=== PATIENT | male | born 2000 | race Caucasian/White ===

== ENCOUNTER 2025-06-29 00:42 | Emergency (ER) | payer BC, OTHER ==
[~2025-06-29] VITALS: Ht 177.8 cm; Wt 95.3 kg
[2025-06-29 00:50] VITALS: BP 116/64
[2025-06-29] MEDS ORDERED: DIVA500T4 PO (00:56)
[2025-06-29 01:19] LABS: PLATELET COUNT (AUTO) 260 K/uL (152-348); RED BLOOD CELL COUNT(AUTO) 5.27 MIL/uL (4.06-5.63); RED CELL DISTRIBUTION WIDTH 13.2 % (12.1-16.2); WHITE BLOOD COUNT (AUTO) 7.2 K/uL (3.6-10.2)
[2025-06-29 01:28] LABS: CREATININE 1.0 mg/dL (0.6-1.3); SODIUM SERUM 139.0 mmol/L (136-145); UREA NITROGEN, BLOOD 19.0 mg/dL (7-18)
[2025-06-29 01:34] LABS: ASPARTATE AMINOTRANSFERASE 21.0 U/L (15-37); TOTAL PROTEIN, SERUM 7.9 g/dL (6.4-8.2)
[2025-06-29 01:38] LABS: LACTIC ACID 6.2 mmol/L (0.4-2.0)
[2025-06-29 01:41] LABS: ETHANOL < 3 MG/DL (0-10); NT-PRO BNP 5 pg/mL (0-125)
[2025-06-29 01:44] LABS: *AMPHETAMINE, URINE NEGATIVE (NEGATIVE); *BARBITURATE, URINE NEGATIVE (NEGATIVE); *BENZODIAZEPINE, URINE NEGATIVE (NEGATIVE); *CANNABINOID, URINE POSITIVE (NEGATIVE); *COCCAINE, URINE NEGATIVE (NEGATIVE); *OPIATE, URINE NEGATIVE (NEGATIVE); *PHENCYCLIDINE SCREEN,URINE NEGATIVE (NEGATIVE); FENTANYL, URINE NEGATIVE (NEGATIVE)
[2025-06-29 02:13] VITALS: BP 111/68; O2SAT 94
== END 2025-06-29 02:15 | disposition home or self-care (01) ==
LOC: ER 00:42
DX: S00.512A Abrasion of oral cavity, initial encounter (principal); G40.909 Epilepsy, unspecified, not intractable, without status epilepticus; R09.02 Hypoxemia; F12.90 Cannabis use, unspecified, uncomplicated; R00.0 Tachycardia, unspecified; R11.10 Vomiting, unspecified; F19.10 Other psychoactive substance abuse, uncomplicated; Z88.1 Allergy status to other antibiotic agents; Z79.899 Other long term (current) drug therapy; Z20.822 Contact with and (suspected) exposure to COVID-19; X58.XXXA Exposure to other specified factors, initial encounter; Y93.89 Activity, other specified; Y92.89 Other specified places as the place of occurrence of the external cause; Y99.8 Other external cause status
CPT/HCPCS: 36415; 71045; 80164; 83605; 85025; 87040; A4606; A4663; G0480